=== PATIENT | female | born 1980 | race Two or more races ===

== ENCOUNTER 2020-10-16 20:13 | Emergency (ER) | payer MEDICAID, OTHER ==
[~2020-10-16] VITALS: Ht 162.6 cm; Wt 70.3 kg
[~2020-10-16 20:13] MED LIST: ALPR0.25
[2020-10-16 20:15] VITALS: BP 137/76
== END 2020-10-16 22:30 | disposition home or self-care (01) ==
LOC: ER 20:13
DX: Z48.02 Encounter for removal of sutures (principal); Z88.6 Allergy status to analgesic agent